=== PATIENT | male | born 1965 | race Native Hawaiian/Other Pacific Islander ===

== ENCOUNTER 2017-10-19 18:37 | Emergency (ER) | payer OTHER ==
[~2017-10-19] VITALS: Ht 167.6 cm; Wt 104.3 kg
[2017-10-19 18:42] VITALS: TEMP 98.8
[2017-10-19 19:35] VITALS: BP 152/80
== END 2017-10-19 19:36 | disposition home or self-care (01) ==
LOC: ED 18:37
DX: S05.01XA Injury of conjunctiva and corneal abrasion without foreign body, right eye, initial encounter (principal)
CPT/HCPCS: 99283

== ENCOUNTER 2018-01-01 13:18 | Outpatient (CLI) | payer OTHER | END 2018-01-01 13:22 | disposition short-term general hospital (02) | LOC: AMB 13:18 | DX: R10.84 Generalized abdominal pain (principal); V49.88XA Car occupant (driver) (passenger) injured in other specified transport accidents, initial encounter; Y92.488 Other paved roadways as the place of occurrence of the external cause | CPT/HCPCS: A0425; A0427 ==

== ENCOUNTER 2018-01-01 13:26 | Emergency (ER) | payer OTHER ==
[~2018-01-01] VITALS: Ht 160 cm; Wt 102.5 kg
[2018-01-01 13:30] VITALS: BP 194/110; TEMP 98.2
[2018-01-01 14:17] LABS: PLATELET COUNT 286 K/uL (142-355)
[2018-01-01 14:26] LABS: POTASSIUM 3.4 mmol/L (3.6-5.2)
== END 2018-01-01 18:15 | disposition home or self-care (01) ==
LOC: ED 13:26
DX: K76.0 Fatty (change of) liver, not elsewhere classified (principal); R10.11 Right upper quadrant pain
CPT/HCPCS: 80053; 81000; 85027; 96374; 96375; 99284; J1885; J2405; Q9963

== ENCOUNTER 2018-07-04 14:32 | Emergency (ER) | payer OTHER ==
[~2018-07-04] VITALS: Ht 160 cm; Wt 102.5 kg
[2018-07-04 15:51] VITALS: BP 170/94; TEMP 97.7
== END 2018-07-04 15:52 | disposition home or self-care (01) ==
LOC: ED 14:32
PROC: 0HQFXZZ Repair Right Hand Skin, External Approach (ICD-10-PCS; principal; 2018-07-04)
DX: S61.210A Laceration without foreign body of right index finger without damage to nail, initial encounter (principal); W45.8XXA Other foreign body or object entering through skin, initial encounter
CPT/HCPCS: 99282; J7040

== ENCOUNTER 2020-12-28 09:27 | Outpatient (CLI) | payer OTHER ==
[2021-01-06 09:28] LABS: POTASSIUM 3.8 mmol/L (3.6-5.2); SODIUM 142 mmol/L (136-145)
[2021-01-06 09:32] LABS: PLATELET COUNT 227 K/uL (142-355)
== END 2020-12-28 23:59 | disposition home or self-care (01) ==
LOC: LABW 09:27
PROVIDERS: ATTEND Family Medicine
DX: R10.9 Unspecified abdominal pain (principal); I10 Essential (primary) hypertension; R11.2 Nausea with vomiting, unspecified; K43.9 Ventral hernia without obstruction or gangrene; E66.9 Obesity, unspecified; M54.41 Lumbago with sciatica, right side
CPT/HCPCS: 80053; 80061; 81000; 84439; 84443; 85027

== ENCOUNTER 2021-01-17 09:01 | Outpatient (CLI) | payer OTHER | END 2021-01-17 22:50 | disposition home or self-care (01) | LOC: CT 09:01 | PROVIDERS: ATTEND Family Medicine | DX: R10.9 Unspecified abdominal pain (principal); R11.2 Nausea with vomiting, unspecified; K43.9 Ventral hernia without obstruction or gangrene; K21.9 Gastro-esophageal reflux disease without esophagitis; E66.9 Obesity, unspecified; I10 Essential (primary) hypertension | CPT/HCPCS: Q9963 ==